=== PATIENT | male | born 1990 | race Caucasian/White ===

== ENCOUNTER 2018-06-11 15:07 | Emergency (ER) | payer MEDICAID ==
--- NOTE | 2018-06-11 15:25 | NUR ---
Pt LWOBS. Pt stating he needs to go to his [facility] appt. Intermittently stating he need a telephone to call his father and then stating that no one iin his family care for him and no one will talk with him. Flight of ideas. Pt denies HI, SI. attempts made to convince pt to stay for HURD. Pt refused to stay and walked out.
== END 2018-06-11 15:26 | disposition left against medical advice (07) ==
LOC: ED 15:20
DX: M79.672 Pain in left foot (principal); Z53.21 Procedure and treatment not carried out due to patient leaving prior to being seen by health care provider

== ENCOUNTER 2018-08-31 22:19 | Emergency (ER) | payer MEDICAID ==
[~2018-08-31] VITALS: Ht 182.9 cm; Wt 66.0 kg
[2018-08-31 22:24] VITALS: BP 115/69
[2018-08-31] MEDS ORDERED: COLCHICINE 0.6 MG TABLET ONE (22:50)
[2018-08-31] MEDS ORDERED: INDOMETHACIN 50 MG CAPSULE ONE (22:50)
[2018-08-31] MEDS ORDERED: COLCHICINE 0.6 MG TABLET PO ONE (23:00)
[2018-08-31] MEDS ORDERED: INDOMETHACIN 50 MG CAPSULE PO ONE (23:00)
[2018-08-31] MEDS ORDERED: HYDROcodone/APAP 5/325 TABLET ONE (23:09)
[2018-08-31] MEDS ORDERED: HYDROcodone/APAP 5/325 TABLET PO ONE (23:30)
== END 2018-08-31 23:18 | disposition home or self-care (01) ==
LOC: ED 22:57
DX: M13.171 Monoarthritis, not elsewhere classified, right ankle and foot (principal); M10.071 Idiopathic gout, right ankle and foot; F17.210 Nicotine dependence, cigarettes, uncomplicated
CPT/HCPCS: 99284

== ENCOUNTER 2019-01-24 06:16 | Emergency (ER) | payer MEDICAID ==
[~2019-01-24] VITALS: Ht 182.9 cm; Wt 76.7 kg
[2019-01-24 06:17] VITALS: BP 119/69
[2019-01-24] MEDS ORDERED: DEXAMETHASONE 4 MG TABLET ONE (06:52)
[2019-01-24] MEDS ORDERED: DEXAMETHASONE 4 MG TABLET PO ONE (07:00)
== END 2019-01-24 07:00 | disposition home or self-care (01) ==
LOC: ED 06:31
DX: J02.0 Streptococcal pharyngitis (principal); F17.200 Nicotine dependence, unspecified, uncomplicated
CPT/HCPCS: 99283

== ENCOUNTER 2019-02-13 10:49 | Emergency (ER) | payer MEDICAID ==
[~2019-02-13] VITALS: Ht 182.9 cm; Wt 73.2 kg
[2019-02-13 11:16] VITALS: BP 142/87
[2019-02-13] MEDS ORDERED: DM/P240L2 PO (11:18)
--- NOTE | 2019-02-13 11:23 | NUR ---
THIS IS A 28 YO M WHO C/O OF HEADACHE, RECENT FEVER AND RIGHT FOOT PAIN. RESPIRATIONS ARE EVEN AND UNLABORED. PATIENT IS IN NO ACUTE DISTRESS. VITALS STABLE. PATIENT RESTING ON GURNEY WATCHING TV WITH CALL LIGHT IN REACH. DENIES FURTHER NEEDS AT THIS TIME.
--- NOTE | 2019-02-13 11:51 | NUR ---
Patient given discharge instructions and they have confirmed that they understand the instructions. Patient ambulatory with steady gait.
== END 2019-02-13 11:53 | disposition home or self-care (01) ==
LOC: ED 11:50
DX: J02.9 Acute pharyngitis, unspecified (principal); M1A.0710 Idiopathic chronic gout, right ankle and foot, without tophus (tophi)
CPT/HCPCS: 99282

== ENCOUNTER 2019-02-23 12:52 | Emergency (ER) ==
[~2019-02-23] VITALS: Ht 185.4 cm; Wt 72.7 kg
[~2019-02-23 12:52] MED LIST: ALBU0.63 NEB; DM/P240L2 PO; INVEGA SUSTENNA; SEROQUEL; WELLBUTRIN
[2019-02-23 13:02] VITALS: BP 103/60
--- NOTE | 2019-02-23 15:13 | NUR ---
pt given dc instructions. pt's foot splinted by edt, pt given fitted crutches and education by edt. .pt verbalizes understanding. pt amb to dc desk with crutch gait. pt a&o, resps even and unlabored, nadn at fl.
== END 2019-02-23 15:00 | disposition home or self-care (01) ==
LOC: ED 14:54
DX: S90.32XA Contusion of left foot, initial encounter (principal); S93.402A Sprain of unspecified ligament of left ankle, initial encounter; J45.909 Unspecified asthma, uncomplicated; M10.9 Gout, unspecified; F17.200 Nicotine dependence, unspecified, uncomplicated; X58.XXXA Exposure to other specified factors, initial encounter; Y93.89 Activity, other specified; Y92.89 Other specified places as the place of occurrence of the external cause; Y99.8 Other external cause status
CPT/HCPCS: 29515; 99283

== ENCOUNTER 2019-02-26 09:01 | Emergency (ER) | payer MEDICAID ==
[~2019-02-26] VITALS: Ht 185.4 cm; Wt 75.0 kg
[2019-02-26 09:13] VITALS: BP 137/96
[2019-02-26] MEDS ORDERED: IBUPROFEN 800 MG TABLET ONE (09:37)
--- NOTE | 2019-02-26 09:47 | NUR ---
Patient/Caregiver given discharge instructions and they have confirmed that they understand the instructions. Patient ambulatory with steady gait.
[2019-02-26] MEDS ORDERED: IBUPROFEN 800 MG TABLET PO ONE (10:00)
== END 2019-02-26 09:48 | disposition home or self-care (01) ==
LOC: ED 09:30
DX: G89.11 Acute pain due to trauma (principal); M79.662 Pain in left lower leg; J45.909 Unspecified asthma, uncomplicated; X58.XXXA Exposure to other specified factors, initial encounter; Y93.89 Activity, other specified; Y92.89 Other specified places as the place of occurrence of the external cause; Y99.8 Other external cause status
CPT/HCPCS: 99282

== ENCOUNTER 2019-03-07 00:01 | Emergency (ER) | payer MEDICAID ==
[~2019-03-07] VITALS: Ht 185.4 cm; Wt 76.1 kg
[2019-03-07 00:04] VITALS: BP 138/82
--- NOTE | 2019-03-07 00:14 | NUR ---
MD AT BEDSIDE TO ASSESS PT
[2019-03-07] MEDS ORDERED: SULFAMETH./TRIMETHOPRIM DS 800MG/160MG TABLET PO ONE (00:30)
[2019-03-07] MEDS ORDERED: ALBUTEROL/IPRATROPIUM 2.5MG/0.5MG, 3 ML NPPB ONE (00:30)
[2019-03-07] MEDS ORDERED: ALBUTEROL/IPRATROPIUM 2.5MG/0.5MG, 3 ML ONE (00:38)
== END 2019-03-07 01:34 | disposition home or self-care (01) ==
LOC: ED 00:25
DX: J20.8 Acute bronchitis due to other specified organisms (principal); B34.9 Viral infection, unspecified; L03.113 Cellulitis of right upper limb; L01.01 Non-bullous impetigo; F10.10 Alcohol abuse, uncomplicated; J45.909 Unspecified asthma, uncomplicated; F17.200 Nicotine dependence, unspecified, uncomplicated; Z72.9 Problem related to lifestyle, unspecified; Z91.14 Patient's other noncompliance with medication regimen; Z75.9 Unspecified problem related to medical facilities and other health care; Z63.8 Other specified problems related to primary support group; Y90.9 Presence of alcohol in blood, level not specified
CPT/HCPCS: 94640; 99283; J7620

== ENCOUNTER 2019-03-15 15:49 | Emergency (ER) | payer MEDICAID ==
[~2019-03-15] VITALS: Ht 188 cm; Wt 79.7 kg
[2019-03-15 15:58] VITALS: BP 133/55
== END 2019-03-15 17:11 | disposition home or self-care (01) ==
LOC: ED 16:45
DX: L01.01 Non-bullous impetigo (principal); J34.0 Abscess, furuncle and carbuncle of nose; L03.114 Cellulitis of left upper limb; L03.113 Cellulitis of right upper limb; J45.909 Unspecified asthma, uncomplicated; M10.9 Gout, unspecified; Z88.8 Allergy status to other drugs, medicaments and biological substances
CPT/HCPCS: 87081; 87147; 87880; 99283

== ENCOUNTER 2019-03-26 09:45 | Emergency (ER) | payer MEDICAID ==
[~2019-03-26] VITALS: Ht 190.5 cm; Wt 74.8 kg
[2019-03-26 09:53] VITALS: BP 128/90
== END 2019-03-26 10:37 | disposition home or self-care (01) ==
LOC: ED 10:30
DX: B35.6 Tinea cruris (principal); F17.200 Nicotine dependence, unspecified, uncomplicated; Z72.9 Problem related to lifestyle, unspecified; Z86.19 Personal history of other infectious and parasitic diseases
CPT/HCPCS: 99282

== ENCOUNTER 2019-03-31 04:56 | Emergency (ER) | payer MEDICAID ==
[~2019-03-31] VITALS: Ht 182.9 cm; Wt 80.0 kg
[2019-03-31 06:57] VITALS: BP 119/74
== END 2019-03-31 06:58 ==
LOC: ED 06:52
DX: J06.9 Acute upper respiratory infection, unspecified (principal); J45.909 Unspecified asthma, uncomplicated; M10.9 Gout, unspecified
CPT/HCPCS: 71046; 87880; 99284

== ENCOUNTER 2019-04-14 00:47 | Emergency (ER) | payer MEDICAID ==
[~2019-04-14] VITALS: Ht 182.9 cm; Wt 76.1 kg
[2019-04-14 00:51] VITALS: BP 102/64
--- NOTE | 2019-04-14 01:23 | NUR ---
Discharge instructions given. All questions and concerns addressed. Patient ambulatory with a steady gait. Belongings with patient.
== END 2019-04-14 01:24 | disposition home or self-care (01) ==
LOC: ED 01:03
DX: M79.672 Pain in left foot (principal); M79.671 Pain in right foot; J45.909 Unspecified asthma, uncomplicated; M10.9 Gout, unspecified; F17.200 Nicotine dependence, unspecified, uncomplicated; Z72.9 Problem related to lifestyle, unspecified; Z75.9 Unspecified problem related to medical facilities and other health care; Z91.14 Patient's other noncompliance with medication regimen; Z63.8 Other specified problems related to primary support group
CPT/HCPCS: 99281

== ENCOUNTER 2019-04-25 07:06 | Emergency (ER) | payer MEDICAID ==
[~2019-04-25] VITALS: Ht 182.9 cm; Wt 74.6 kg
[2019-04-25 07:10] VITALS: BP 134/81
--- NOTE | 2019-04-25 07:29 | NUR ---
PT REQUESTING COUGH MEDICINE. HAS HAD A COUGH FOR 2 WEEKS. FEET ARE BOTHERING HIM BUT HE BELIEVES THAT IS FROM WALKING A LOT
== END 2019-04-25 08:35 | disposition home or self-care (01) ==
LOC: ED 08:32
DX: J45.901 Unspecified asthma with (acute) exacerbation (principal); J02.8 Acute pharyngitis due to other specified organisms; B34.9 Viral infection, unspecified
CPT/HCPCS: 71046; 87081; 87880; 99284

== ENCOUNTER 2019-05-05 12:57 | Emergency (ER) | payer MEDICAID ==
[~2019-05-05] VITALS: Ht 190.5 cm; Wt 75.8 kg
[2019-05-05 13:00] VITALS: BP 142/55
[2019-05-05] MEDS ORDERED: NEOSPORIN OINT. PKT 1 PACKET ONE (13:18)
--- NOTE | 2019-05-05 13:18 | NUR ---
PT HERE FOR INJURY TO RIGHT THUMB. STATES HE GOT IT WHILE SKIPPING ROCKS YESTERDAY. SMALL WOUND NOTED JUST ABOVE THUMB NAIL. NO ACTIVE BLEEDING. PT RESTING ON MARILYN. URI.
--- NOTE | 2019-05-05 13:23 | NUR ---
FUNERAL SERVICE LICENSEE AT BEDSIDE DRESSING WOUND NOW.
== END 2019-05-05 13:53 | disposition home or self-care (01) ==
LOC: ED 13:44
DX: S60.311A Abrasion of right thumb, initial encounter (principal); L03.011 Cellulitis of right finger; J45.909 Unspecified asthma, uncomplicated; Z59.0 Homelessness; X58.XXXA Exposure to other specified factors, initial encounter; Y93.89 Activity, other specified; Y92.89 Other specified places as the place of occurrence of the external cause; Y99.8 Other external cause status
CPT/HCPCS: 99283

== ENCOUNTER 2019-06-02 04:30 | Emergency (ER) | payer MEDICAID ==
[~2019-06-02] VITALS: Ht 185.4 cm; Wt 70.9 kg
[2019-06-02 04:34] VITALS: BP 130/81
== END 2019-06-02 07:22 | disposition left against medical advice (07) ==
LOC: ED 07:11
DX: R10.9 Unspecified abdominal pain (principal); Z53.21 Procedure and treatment not carried out due to patient leaving prior to being seen by health care provider

== ENCOUNTER 2019-06-12 13:56 | Emergency (ER) | payer MEDICAID ==
[~2019-06-12] VITALS: Ht 182.9 cm; Wt 70.0 kg
--- NOTE | 2019-06-12 14:05 | NUR ---
pt refusing vitals.
--- NOTE | 2019-06-12 14:13 | NUR ---
PT BIBA FROM [facility] (NOT IN CUSTODY) FOR OPEN FINGER WOUNDS. PT STATES HE DOES NOT KNOW HOW HE ACQUIRED THE WOUNDS. PT REFUSING MONITORING EQUIPMENT AND VS. PT IS MANIC AND SPEAKS CONTINUOUSLY, BUT IS CALM. DR. HAYES TO BS TO ASSES WOUNDS. HANDS WASHED AND ARE CURRENTLY SOAKING IN WARM SOAPY WATER. WILL CONTINUE TO MONITOR.
--- NOTE | 2019-06-12 15:09 | NUR ---
Patient given discharge instructions and they have confirmed that they understand the instructions. Patient ambulatory with steady gait.
== END 2019-06-12 15:10 | disposition home or self-care (01) ==
LOC: ED 14:50
DX: S60.410A Abrasion of right index finger, initial encounter (principal); S60.412A Abrasion of right middle finger, initial encounter; S60.414A Abrasion of right ring finger, initial encounter; S60.416A Abrasion of right little finger, initial encounter; S90.511A Abrasion, right ankle, initial encounter; S60.411A Abrasion of left index finger, initial encounter; S60.413A Abrasion of left middle finger, initial encounter; S60.415A Abrasion of left ring finger, initial encounter; S60.417A Abrasion of left little finger, initial encounter; F17.200 Nicotine dependence, unspecified, uncomplicated; X58.XXXA Exposure to other specified factors, initial encounter; Y93.9 Activity, unspecified; Y92.89 Other specified places as the place of occurrence of the external cause; Y99.8 Other external cause status
CPT/HCPCS: 99283

== ENCOUNTER 2019-08-10 07:01 | Emergency (ER) | payer MEDICAID ==
[~2019-08-10] VITALS: Ht 175.3 cm; Wt 80.0 kg
[2019-08-10 07:07] VITALS: BP 124/81
== END 2019-08-10 07:31 | disposition home or self-care (01) ==
LOC: ED 07:20
DX: L03.115 Cellulitis of right lower limb (principal); L01.01 Non-bullous impetigo; J45.909 Unspecified asthma, uncomplicated; M10.9 Gout, unspecified
CPT/HCPCS: 99283

== ENCOUNTER 2019-08-24 13:08 | Emergency (ER) | payer MEDICAID ==
[~2019-08-24] VITALS: Ht 188 cm; Wt 71.5 kg
--- NOTE | 2019-08-24 13:18 | NUR ---
THIS IS A 29 YO M BIB EMS AFTER BEING FOUND LAYING ON GROUND OUTSIDE OF [facility]. PER EMS PT REPORTS DRINKING 1 PINT TODAY. PT ARROUSES TO VERBAL STIMULI. GCS OF 9. RESP EVEN AND UNLABORED, VSS. PT DESAT TO 80% WHEN SLEEPING WHILE THIS RN WAS IN THE ROOM. 98% AFTER AROUSED. PT PLACED ON 4L NC FOR SAFETY. PT RESTING ON [place] W/ CALL LIGHT IN REACH, SIDE RAILS UPX2, CONNECTED TO MONITORING. AWAITING ED EVAL.
--- NOTE | 2019-08-24 14:12 | NUR ---
PT SLEEPING ON GURNEY, CHEST RISE AND FALL OBSERVED, VSS, NADN.
--- NOTE | 2019-08-24 15:44 | NUR ---
PT SLEEPING ON GURNEY, CHEST RISE AND FALL OBSERVED, VSS, NADN.
--- NOTE | 2019-08-24 15:52 | NUR ---
PT MORE AROUSABLE. SITTING UP OPN GURNEY EATING. VSS, ZITAN.
[2019-08-24 16:15] VITALS: BP 105/70
== END 2019-08-24 16:32 | disposition home or self-care (01) ==
LOC: ED 15:20
DX: F10.120 Alcohol abuse with intoxication, uncomplicated (principal); J45.909 Unspecified asthma, uncomplicated; M10.9 Gout, unspecified; Y90.0 Blood alcohol level of less than 20 mg/100 ml
CPT/HCPCS: 99283

== ENCOUNTER 2019-08-26 08:47 | Emergency (ER) | payer MEDICAID ==
[~2019-08-26] VITALS: Ht 182.9 cm; Wt 74.1 kg
[2019-08-26 08:50] VITALS: BP 135/75
--- NOTE | 2019-08-26 09:12 | NUR ---
PT CAUGHT MASTERBATING X2 IN RM, VERBALIZED TO PT THAT IS NOT OK TO DO HERE. PT STATES "IM SORRY ILL JUST GO, IM OK" ERPROVIDER UPDATED
== END 2019-08-26 09:15 | disposition left against medical advice (07) ==
LOC: ED 09:04
DX: M54.9 Dorsalgia, unspecified (principal); M79.606 Pain in leg, unspecified; Z53.21 Procedure and treatment not carried out due to patient leaving prior to being seen by health care provider

== ENCOUNTER 2019-10-28 05:09 | Emergency (ER) | payer MEDICAID ==
[~2019-10-28] VITALS: Ht 182.9 cm; Wt 74.2 kg
[2019-10-28 05:11] VITALS: BP 133/72
--- NOTE | 2019-10-28 05:33 | NUR ---
PT STATES HE WAS RELEASED FROM [facility]USTODIAL LAST NIGHT. DURING PT INTERVIEW, PT ASKS MD FOR PERCOCET, NORCOS, TYLENOL, ADVIL PM, BUS PASS AND FOOD. PT HAS DISORGANIZED THOUGHT PROCESS
--- NOTE | 2019-10-28 05:36 | NUR ---
PATIENT STATED THAT HE WANTS TO LEAVE, PATIENT REFUSED TO SIGN OUT AMA. AMBULATORY TO DISCHARGE DESK WITHOUT COMPLICATIONS.
== END 2019-10-28 05:39 | disposition left against medical advice (07) ==
LOC: ED 05:30
DX: S90.812A Abrasion, left foot, initial encounter (principal); F41.1 Generalized anxiety disorder; M10.9 Gout, unspecified; R00.0 Tachycardia, unspecified; I51.7 Cardiomegaly; X58.XXXA Exposure to other specified factors, initial encounter; Y93.89 Activity, other specified; Y92.89 Other specified places as the place of occurrence of the external cause; Y99.8 Other external cause status
CPT/HCPCS: 93005; 99283

== ENCOUNTER 2019-10-31 21:40 | Emergency (ER) | payer MEDICAID ==
[~2019-10-31] VITALS: Ht 193 cm; Wt 62.0 kg
[2019-10-31 21:42] VITALS: BP 108/58
--- NOTE | 2019-10-31 21:51 | NUR ---
THIS PT WAS BIB [facility] AFTER [employer] CALLED. PER DARIANA [employer] CALLED BECAUSE THIS PT WAS "RUNNING AROUND IN THE PARK AND NOT ACTING RIGHT." PT HAS A HX OF SCHITZOPHRENIA. PT STATES HE'S CURRENTLY HEARING VOICES AND SEEING SHADOWS THAT HE KNOWS AREN'T THERE. THIS PT ALSO HAS FLIGHT OF IDEAS. HE IS A&OX4, CALM AND COOPERATIVE. DENIES SI/ HI.
--- NOTE | 2019-10-31 21:53 | NUR ---
PT LAYING IN BED, NO SIGNS OF DISTRESS, BED RAIL UP, CALL LIGHT IN REACH.
[2019-10-31] MEDS ORDERED: NEOSPORIN OINT. PKT 1 PACKET ONE (22:10)
--- NOTE | 2019-10-31 22:21 | NUR ---
PT GIVEN BUCKET AND SOAP TO WASH FOOT.
== END 2019-10-31 23:10 | disposition home or self-care (01) ==
LOC: ED 21:57
DX: S91.202A Unspecified open wound of left great toe with damage to nail, initial encounter (principal); M79.671 Pain in right foot; F10.10 Alcohol abuse, uncomplicated; Z72.9 Problem related to lifestyle, unspecified; J45.909 Unspecified asthma, uncomplicated; M10.9 Gout, unspecified; X58.XXXA Exposure to other specified factors, initial encounter; Y93.89 Activity, other specified; Y92.410 Unspecified street and highway as the place of occurrence of the external cause; Y99.8 Other external cause status; Y90.9 Presence of alcohol in blood, level not specified
CPT/HCPCS: 99283

== ENCOUNTER 2019-11-03 21:12 | Emergency (ER) | payer MEDICAID ==
[~2019-11-03] VITALS: Ht 182.9 cm; Wt 75.8 kg
[2019-11-03 21:17] VITALS: BP 125/71
--- NOTE | 2019-11-03 22:11 | NUR ---
Attempted to call pt back. NILx1.
--- NOTE | 2019-11-03 22:28 | NUR ---
Attempted to call pt back. NILx2.
--- NOTE | 2019-11-03 22:41 | NUR ---
Attempted to call pt back. NILx3. Considered LWBS at this time.
== END 2019-11-03 22:43 | disposition left against medical advice (07) ==
LOC: ED 22:10
DX: M79.674 Pain in right toe(s) (principal); Z53.21 Procedure and treatment not carried out due to patient leaving prior to being seen by health care provider

== ENCOUNTER 2019-11-10 18:32 | Emergency (ER) | payer MEDICAID ==
[~2019-11-10] VITALS: Ht 188 cm; Wt 73.7 kg
--- NOTE | 2019-11-10 19:10 | NUR ---
RETIREMENT PLAN COUNSELOR: PT AMBULATORY TO ROOM WITH STEADY GAIT AT THIS TIME
--- NOTE | 2019-11-10 20:18 | NUR ---
PT OK FOR D/C. PT GIVEN BUS PASS PER REQUEST. PT VERBALIZED UNDERSTANDING OF D/C INSTRUCTIONS.
[2019-11-10 20:24] VITALS: BP 129/78
== END 2019-11-10 20:26 | disposition home or self-care (01) ==
LOC: ED 20:02
DX: M79.671 Pain in right foot (principal); M79.672 Pain in left foot; J45.909 Unspecified asthma, uncomplicated; M10.9 Gout, unspecified
CPT/HCPCS: 99281

== ENCOUNTER 2020-01-13 02:48 | Emergency (ER) | payer MEDICAID ==
[~2020-01-13] VITALS: Ht 182.9 cm; Wt 79.9 kg
--- NOTE | 2020-01-13 03:07 | NUR ---
PT STATES HAVING A GOUT FLAIR UP FOR 2 DAYS, AND IS HAVING TROUBLE WALKING AROUND ON IT. STATES 10/10 PAIN. PT RESTING IN BED, AND FRIEND HERE FOR SUPPORT.
--- NOTE | 2020-01-13 03:30 | NUR ---
PT'S FOOT ELEVATED AND PROVIDED ICE PER ERP ORDER.
[2020-01-13] MEDS ORDERED: NAPROXEN 500 MG TABLET PO ONE (04:00)
[2020-01-13] MEDS ORDERED: NAPROXEN 500 MG TABLET ONE (04:11)
[2020-01-13] MEDS ORDERED: COLCHICINE 0.6 MG CAPSULE PO ONE (04:30)
[2020-01-13] MEDS ORDERED: COLCHICINE 0.6 MG CAPSULE ONE (05:20)
[2020-01-13 05:24] VITALS: BP 110/63
== END 2020-01-13 05:32 | disposition home or self-care (01) ==
LOC: ED 04:16
DX: M10.071 Idiopathic gout, right ankle and foot (principal); M13.171 Monoarthritis, not elsewhere classified, right ankle and foot; J45.909 Unspecified asthma, uncomplicated; Z72.9 Problem related to lifestyle, unspecified
CPT/HCPCS: 99283

== ENCOUNTER 2020-03-18 16:14 | Emergency (ER) | payer MEDICAID ==
[~2020-03-18] VITALS: Ht 177.8 cm; Wt 71.0 kg
[2020-03-18 16:23] VITALS: BP 127/75
== END 2020-03-18 16:43 | disposition home or self-care (01) ==
LOC: ED 16:20
DX: L89.91 Pressure ulcer of unspecified site, stage 1 (principal); M79.672 Pain in left foot; F17.210 Nicotine dependence, cigarettes, uncomplicated; Z72.9 Problem related to lifestyle, unspecified
CPT/HCPCS: 99283

== ENCOUNTER 2020-03-31 17:56 | Emergency (ER) | payer MEDICAID ==
[~2020-03-31] VITALS: Ht 182.9 cm; Wt 72.0 kg
[2020-03-31 17:58] VITALS: BP 122/72
--- NOTE | 2020-03-31 18:20 | NUR ---
NO ANSWER FROM TRIAGE TO RM
--- NOTE | 2020-03-31 18:21 | NUR ---
JENIFEROPEJanice CALLED X 3
== END 2020-03-31 18:24 | disposition home or self-care (01) ==
LOC: ED 18:07
DX: M79.605 Pain in left leg (principal); Z53.21 Procedure and treatment not carried out due to patient leaving prior to being seen by health care provider

== ENCOUNTER 2020-04-09 15:49 | Emergency (ER) | payer MEDICAID ==
[~2020-04-09] VITALS: Ht 182.9 cm; Wt 74.1 kg
--- NOTE | 2020-04-09 15:57 | NUR ---
KATI RN: PT IN BATHROOM
[2020-04-09 16:05] VITALS: BP 121/66
[2020-04-09] MEDS ORDERED: SULFAMETH./TRIMETHOPRIM DS 800MG/160MG TABLET PO ONE (16:30)
[2020-04-09] MEDS ORDERED: SULFAMETH./TRIMETHOPRIM DS 800MG/160MG TABLET ONE (16:47)
== END 2020-04-09 17:03 | disposition home or self-care (01) ==
LOC: ED 16:28
DX: L02.416 Cutaneous abscess of left lower limb (principal); F17.200 Nicotine dependence, unspecified, uncomplicated
CPT/HCPCS: 99283

== ENCOUNTER 2020-05-26 21:53 | Emergency (ER) | payer MEDICAID ==
[~2020-05-26] VITALS: Ht 182.9 cm; Wt 67.6 kg
[2020-05-26 22:07] VITALS: BP 139/79
--- NOTE | 2020-05-26 22:46 | NUR ---
[place], no distress. wound to outer portion of right ankle dressed with a 2x2 and some tape. no bleeding or drainage. f/u and d/c instructions given to pt and he v/u.
--- NOTE | 2020-05-26 22:55 | NUR ---
Provided pt snack, drink, cleaned feet with warm water and antimicrobial soap. Socks placed after curad and non-stick dressing applied to sores on feet.
== END 2020-05-26 22:48 | disposition home or self-care (01) ==
LOC: ED 22:00
DX: S90.822A Blister (nonthermal), left foot, initial encounter (principal); S90.821A Blister (nonthermal), right foot, initial encounter; L02.416 Cutaneous abscess of left lower limb; X58.XXXA Exposure to other specified factors, initial encounter; Y93.89 Activity, other specified; Y92.89 Other specified places as the place of occurrence of the external cause; Y99.8 Other external cause status
CPT/HCPCS: 99283

== ENCOUNTER 2020-05-28 01:28 | Emergency (ER) | payer MEDICAID ==
[~2020-05-28] VITALS: Ht 182.9 cm; Wt 72.8 kg
[2020-05-28 01:42] VITALS: BP 146/84
[2020-05-28] MEDS ORDERED: IBUPROFEN 800 MG TABLET PO ONE (02:00)
== END 2020-05-28 02:40 | disposition home or self-care (01) ==
LOC: ED 02:34
DX: G89.11 Acute pain due to trauma (principal); M79.675 Pain in left toe(s); F17.200 Nicotine dependence, unspecified, uncomplicated; J45.909 Unspecified asthma, uncomplicated; M10.9 Gout, unspecified; Z72.9 Problem related to lifestyle, unspecified
CPT/HCPCS: 99281

== ENCOUNTER 2020-06-21 16:36 | Emergency (ER) | payer MEDICAID ==
[~2020-06-21] VITALS: Ht 182.9 cm; Wt 73.4 kg
[2020-06-21 16:55] VITALS: BP 122/89
--- NOTE | 2020-06-21 17:24 | NUR ---
PT HAS CO ANXIETY. NOT COMPLIANT W PSYCH MEDS. STAYING AT LONG TERM. DENIES SI
--- NOTE | 2020-06-21 18:24 | NUR ---
Patient given discharge instructions and they have confirmed that they understand the instructions. Patient ambulatory with steady gait. Bus pass given
== END 2020-06-21 18:26 | disposition home or self-care (01) ==
LOC: ED 17:32
DX: F41.9 Anxiety disorder, unspecified (principal); R42 Dizziness and giddiness; R07.89 Other chest pain; R51.9 Headache, unspecified; R11.10 Vomiting, unspecified
CPT/HCPCS: 93005; 99283

== ENCOUNTER 2020-06-21 21:24 | Emergency (ER) | payer MEDICAID ==
[~2020-06-21] VITALS: Ht 182.9 cm; Wt 71.2 kg
[2020-06-22] VITALS: BP 119/87
--- NOTE | 2020-06-22 00:01 | NUR ---
PATIENT GIVEN PANTS, SHIRT, JACKET, SOCKS. PATIENT CLEARED FOR DISCHARGE. PT STATED THAT HE PREFERED A BUS PASS OVER TAXI VOUCHER, GIVEN PER PATIENT REQUEST. PATIENT DENIES ANY ADDITIONAL QUESTIONS AT TIME OF DISCHARGE. AMBULATORY TO DISCHARGE WITHOUT COMPLICATIONS, WITH BELONGINGS.
== END 2020-06-22 00:02 | disposition home or self-care (01) ==
LOC: ED 06-22
DX: M79.671 Pain in right foot (principal); M79.672 Pain in left foot; X31.XXXA Exposure to excessive natural cold, initial encounter; Y93.89 Activity, other specified; Y92.89 Other specified places as the place of occurrence of the external cause; Y99.8 Other external cause status
CPT/HCPCS: 99281

== ENCOUNTER 2020-06-25 14:49 | Emergency (ER) | payer MEDICAID ==
[~2020-06-25] VITALS: Ht 182.9 cm; Wt 70.4 kg
--- NOTE | 2020-06-25 15:17 | NUR ---
PT W/ C/O BILAT FOOT PAIN "TRENCH FOOT FROM WALKING ALL WEEKEND" PT ASLEEP WHEN ENTERING ROOM, PT UNABLE GIVE STRAIGHT ANSWER WHEN ASKING QUESTIONS. PT MUMBLES TO SELF AND TRAILS OFF TOPIC. GABRIEL PHOENIX AT BEDSIDE FOR EVALUATION. NADN. OLIVIER.
--- NOTE | 2020-06-25 15:34 | NUR ---
PT DENIES FOOT TRUAMA, NO VISIBLE TRAUAMA, OR WOUND. FEET DO APPEAR RED AND DIRTY.
[2020-06-25 16:34] VITALS: BP 108/61
--- NOTE | 2020-06-25 16:36 | NUR ---
Patient/Caregiver given discharge instructions and they have confirmed that they understand the instructions. Patient ambulatory with steady gait.
== END 2020-06-25 16:36 | disposition home or self-care (01) ==
LOC: ED 16:00
DX: L03.116 Cellulitis of left lower limb (principal); J45.909 Unspecified asthma, uncomplicated
CPT/HCPCS: 99283

== ENCOUNTER 2020-07-16 19:41 | Emergency (ER) | payer MEDICAID ==
[~2020-07-16] VITALS: Ht 182.9 cm; Wt 74.1 kg
--- NOTE | 2020-07-16 20:07 | NUR ---
patient arrives with injury to left big toe. its a busted heat blister, its red and painful to patient
--- NOTE | 2020-07-16 20:11 | NUR ---
patient mostly requesting snack and bus pass. will get snack
[2020-07-16] MEDS ORDERED: KETOROLAC 30 MG/1 ML ONE (20:26)
[2020-07-16] MEDS ORDERED: KETOROLAC 30 MG/1 ML IM ONE (20:30)
[2020-07-16 20:47] VITALS: BP 128/78
--- NOTE | 2020-07-16 20:49 | NUR ---
got patient peanut butter & jelly sandwich, bus pas, and drink
--- NOTE | 2020-07-16 20:51 | NUR ---
dressed wound with abx cream, allevyn, and gauze/tape
[2020-07-16] MEDS ORDERED: NEOSPORIN OINT. PKT 1 PACKET ONE ×2 (20:52→20:54)
== END 2020-07-16 21:00 | disposition home or self-care (01) ==
LOC: ED 20:13
DX: M79.672 Pain in left foot (principal); L03.032 Cellulitis of left toe; L89.892 Pressure ulcer of other site, stage 2; F10.10 Alcohol abuse, uncomplicated; F17.210 Nicotine dependence, cigarettes, uncomplicated; F12.10 Cannabis abuse, uncomplicated; Y90.0 Blood alcohol level of less than 20 mg/100 ml
CPT/HCPCS: 73660; 96372; 99283; J1885

== ENCOUNTER 2020-07-19 06:38 | Emergency (ER) | payer MEDICAID ==
[~2020-07-19] VITALS: Ht 182.9 cm; Wt 73.9 kg
[2020-07-19 06:40] VITALS: BP 149/88
--- NOTE | 2020-07-19 06:50 | NUR ---
PA AT BS
--- NOTE | 2020-07-19 07:07 | NUR ---
PT SHOWERED W/ SOAP AND WATER. PT CHANGED INTO GOWN. NO NEEDS AT THIS TIME
[2020-07-19] MEDS ORDERED: NEOSPORIN OINT. PKT 1 PACKET ONE (07:20)
--- NOTE | 2020-07-19 07:36 | NUR ---
Patient given discharge instructions and they have confirmed that they understand the instructions. Patient ambulatory with steady gait.
== END 2020-07-19 07:38 | disposition home or self-care (01) ==
LOC: ED 07:30
DX: S91.202A Unspecified open wound of left great toe with damage to nail, initial encounter (principal); X58.XXXA Exposure to other specified factors, initial encounter; Y93.89 Activity, other specified; Y92.89 Other specified places as the place of occurrence of the external cause; Y99.8 Other external cause status
CPT/HCPCS: 99282

== ENCOUNTER 2020-07-25 18:53 | Emergency (ER) | payer MEDICAID ==
[~2020-07-25] VITALS: Ht 182.9 cm; Wt 85.0 kg
--- NOTE | 2020-07-25 18:55 | NUR ---
pt bib ems from where he was sleeping on someones lawn with a 5th of vodka. pt was found by an offf optics technical officer who called ems. pt provided 750mls NS enroute. NAD, pt will mumble back to rn when asked questions but does not speak clearly enough to state name. pt mumbled birthday to rn but rn was unable to tell exactly what was said. pt smells of etoh. placed on rclovis, spo2/bp monitoring in place, bed in lowest, rails engaged, call light on lap, vss, wctm.
--- NOTE | 2020-07-25 20:29 | NUR ---
pt resting on gurney, nad, arousable to verbal stimuli. pt resting with eyes closed. even and unlabored respirations noted, vss, monitoring in placed, bed in lowest, rails engaged, call light on lap, wctm.
--- NOTE | 2020-07-25 21:48 | NUR ---
PT RESTING ON GURNEY, NAD, APPEARS COMFORTABLE, VSS, MORE EASILY ROUSED AT THIS TIME. UNABLE TO WALK AT THIS TIME. WCTM
--- NOTE | 2020-07-25 22:45 | NUR ---
PT RESTING ON [place], NAD, NO CHANGE IN CONDITION, VSS, WCTM. MTF
--- NOTE | 2020-07-25 23:22 | NUR ---
Patient given discharge instructions and they have confirmed that they understand the instructions. Patient ambulatory with steady gait. RN LOOKED FOR SHOES FOR PT. NO SHOES IN CLOSET WERE CORRECT SIZE. PT PROVIDED BLANKET AND BUS PASS PER REQUEST, PT DECLINE TAXI VOUCHER AND REQUESTED BUS PASS. PT NAD, DENIES ADDITIONAL QUESTIONS OR NEEDS.
[2020-07-25 23:42] VITALS: BP 118/56
--- NOTE | 2020-07-25 23:42 | NUR ---
PT PROVIDED SNACKS FOR DC.
== END 2020-07-25 23:44 | disposition home or self-care (01) ==
LOC: ED 19:23 → MERGE 19:23 → ED 23:44
DX: F10.120 Alcohol abuse with intoxication, uncomplicated (principal); Y90.0 Blood alcohol level of less than 20 mg/100 ml
CPT/HCPCS: 99285

== ENCOUNTER 2020-07-26 15:30 | Emergency (ER) | payer MEDICAID ==
[~2020-07-26] VITALS: Ht 182.9 cm; Wt 73.3 kg
--- NOTE | 2020-07-26 15:34 | NUR ---
NA IN LOBBY X1
--- NOTE | 2020-07-26 15:40 | NUR ---
NA IN LOBBY X2
[2020-07-26 15:45] VITALS: BP 112/75
--- NOTE | 2020-07-26 15:58 | NUR ---
Task RN: Pt given soapy water bucket to wash feet.
--- NOTE | 2020-07-26 16:46 | NUR ---
Patient/Caregiver given discharge instructions and they have confirmed that they understand the instructions. Patient ambulatory with steady gait.
== END 2020-07-26 16:47 | disposition home or self-care (01) ==
LOC: ED 15:35
DX: B35.3 Tinea pedis (principal); Z72.9 Problem related to lifestyle, unspecified; J45.909 Unspecified asthma, uncomplicated; M10.9 Gout, unspecified; F17.210 Nicotine dependence, cigarettes, uncomplicated
CPT/HCPCS: 99283

== ENCOUNTER 2020-07-27 20:58 | Emergency (ER) | payer MEDICAID ==
[~2020-07-27] VITALS: Ht 182.9 cm; Wt 71.6 kg
[2020-07-27 21:01] VITALS: BP 129/81
--- NOTE | 2020-07-27 21:27 | NUR ---
BUTTON AND BUCKLE MAKER: PT. DE GUZMAN FOR TOE PAIN. SENT TO [facility] UPON ARRIVAL. PT. WAS SEEN YESTERDAY AND PROVIDED WITH NEW SHOES FROM [employer]ET AND SOCKS. PT. STATES WHEN ASKED WHAT HAPPENED TO THE SHOES HE WAS GIVEN YESTERDAY "I THREW THEM AWAY". PT. ALSO MADE A STATEMENT "I WAS IN [place] AND I JUST NEEDED A RIDE DOWNTOWN." PT. WENT TO REGISTRATION DEST AT THIS TIME AND STATED "I AM DISCHARGING MYSELF" PT. AMBULATED OUT OF ED WITH STEADY GAIT.
== END 2020-07-27 21:30 | disposition left against medical advice (07) ==
LOC: ED 21:00
DX: S99.922A Unspecified injury of left foot, initial encounter (principal); Z53.21 Procedure and treatment not carried out due to patient leaving prior to being seen by health care provider; X58.XXXA Exposure to other specified factors, initial encounter; Y93.89 Activity, other specified; Y92.89 Other specified places as the place of occurrence of the external cause; Y99.8 Other external cause status

== ENCOUNTER 2020-07-30 13:52 | Emergency (ER) | payer MEDICAID ==
[2020-07-30 13:59] VITALS: BP 132/65
== END 2020-07-30 14:43 | disposition home or self-care (01) ==
LOC: ED 14:38
DX: Z00.00 Encounter for general adult medical examination without abnormal findings (principal); J45.909 Unspecified asthma, uncomplicated
CPT/HCPCS: 99281

== ENCOUNTER 2020-08-03 00:57 | Emergency (ER) | payer MEDICAID ==
[~2020-08-03] VITALS: Ht 182.9 cm; Wt 92.9 kg
[2020-08-03 01:06] VITALS: BP 117/75
[2020-08-03] MEDS ORDERED: NEOSPORIN OINT. PKT 1 PACKET ONE (02:21)
== END 2020-08-03 02:54 ==
LOC: ED 02:10
DX: S90.511A Abrasion, right ankle, initial encounter (principal); J45.909 Unspecified asthma, uncomplicated; X58.XXXA Exposure to other specified factors, initial encounter; Y93.01 Activity, walking, marching and hiking; Y92.89 Other specified places as the place of occurrence of the external cause; Y99.8 Other external cause status
CPT/HCPCS: 99283

== ENCOUNTER 2020-09-20 00:23 | Emergency (ER) | payer MEDICAID ==
[~2020-09-20] VITALS: Ht 182.9 cm; Wt 75.0 kg
[2020-09-20 00:38] VITALS: BP 138/74
--- NOTE | 2020-09-20 00:58 | NUR ---
PER PSA AT DOOR PT LEFT WITHOUT BEING SEEN BY PROVIDER AT THIS TIME.
== END 2020-09-20 01:29 | disposition left against medical advice (07) ==
LOC: ED 01:00
DX: B86 Scabies (principal); Z53.21 Procedure and treatment not carried out due to patient leaving prior to being seen by health care provider

== ENCOUNTER 2020-09-21 21:34 | Emergency (ER) | payer MEDICAID ==
[~2020-09-21] VITALS: Ht 182.9 cm; Wt 81.0 kg
[2020-09-21 22:09] VITALS: BP 133/77
== END 2020-09-21 22:37 | disposition home or self-care (01) ==
LOC: ED 22:00
DX: L50.9 Urticaria, unspecified (principal); F17.210 Nicotine dependence, cigarettes, uncomplicated; M10.9 Gout, unspecified
CPT/HCPCS: 99283; 99406

== ENCOUNTER 2020-10-11 00:37 | Emergency (ER) | payer MEDICAID ==
[~2020-10-11] VITALS: Ht 185.4 cm; Wt 72.0 kg
--- NOTE | 2020-10-11 00:47 | NUR ---
NIL X 1
--- NOTE | 2020-10-11 01:11 | NUR ---
PT CAME INTO ED WITH A FIELD TRAFFIC INVESTIGATOR "BLISTER ON MY RIGHT BIG TOE" STATES IT POPPED UP TODAY AND HE HAS BEEN WALKING A LOT LATELY. PT NAD, RESTING ON RNAPLES, WALKED BACK TO ROOM WITH A SMOOTH AND STEADY GAIT, MONITORING IN PLACE, REPORT TO PRIMARY RN, ROSA.
[2020-10-11 01:32] VITALS: BP 127/50
--- NOTE | 2020-10-11 01:33 | NUR ---
Patient given discharge instructions and they have confirmed that they understand the instructions. Patient ambulatory with steady gait. NAD, all questions answered appropriately, denies additional needs at this time. No personal belongings left in room after discharge.
== END 2020-10-11 01:35 | disposition home or self-care (01) ==
LOC: ED 01:00
DX: L03.032 Cellulitis of left toe (principal); J45.909 Unspecified asthma, uncomplicated
CPT/HCPCS: 99283

== ENCOUNTER 2020-10-15 01:52 | Emergency (ER) | payer MEDICAID ==
[~2020-10-15] VITALS: Ht 182.9 cm; Wt 74.3 kg
[2020-10-15 02:02] VITALS: BP 124/64
--- NOTE | 2020-10-15 02:08 | NUR ---
PT PRESENTS TO ER FOR LEFT ANKLE PAIN, PT STATES HE WOKE UP IN THE MIDDLE OF THE NIGHT AND IT WAS JUST HURTING, PT HAS A BRACE IN PLACE THAT WAS PLACED AT [facility] THIS MORNING, PT AMBULATED TO THE ROOM, IN ROOM TO DISCUSS POC
[2020-10-15] MEDS ORDERED: IBUPROFEN 600 MG TABLET ONE (02:15)
[2020-10-15] MEDS ORDERED: IBUPROFEN 600 MG TABLET PO ONE (02:30)
== END 2020-10-15 02:26 | disposition home or self-care (01) ==
LOC: ED 02:24
DX: M25.572 Pain in left ankle and joints of left foot (principal); J45.909 Unspecified asthma, uncomplicated
CPT/HCPCS: 99282

== ENCOUNTER 2020-10-17 02:06 | Emergency (ER) | payer MEDICAID ==
[~2020-10-17] VITALS: Ht 182.9 cm; Wt 71.0 kg
[2020-10-17 02:07] VITALS: BP 146/75
== END 2020-10-17 02:34 | disposition home or self-care (01) ==
LOC: ED 02:20
DX: M79.672 Pain in left foot (principal); J45.909 Unspecified asthma, uncomplicated
CPT/HCPCS: 99281

== ENCOUNTER 2020-10-24 02:23 | Emergency (ER) | payer MEDICAID ==
[~2020-10-24] VITALS: Ht 182.9 cm; Wt 72.0 kg
[2020-10-24 06:25] VITALS: BP 106/55
== END 2020-10-24 06:32 | disposition home or self-care (01) ==
LOC: ED 05:37
DX: S90.112A Contusion of left great toe without damage to nail, initial encounter (principal); X58.XXXA Exposure to other specified factors, initial encounter; Y93.89 Activity, other specified; Y92.89 Other specified places as the place of occurrence of the external cause; Y99.8 Other external cause status
CPT/HCPCS: 99283

== ENCOUNTER 2020-11-03 18:04 | Emergency (ER) | payer MEDICAID ==
--- NOTE | 2020-11-03 18:33 | NUR ---
NIL X1.
--- NOTE | 2020-11-03 18:44 | NUR ---
NIL X2.
--- NOTE | 2020-11-03 19:12 | NUR ---
NOT IN LOBBY WHEN CALLED
== END 2020-11-03 19:13 | disposition left against medical advice (07) ==
LOC: ED 19:10
DX: M79.676 Pain in unspecified toe(s) (principal); Z53.21 Procedure and treatment not carried out due to patient leaving prior to being seen by health care provider

== ENCOUNTER 2020-11-15 04:24 | Emergency (ER) | payer MEDICAID ==
[~2020-11-15] VITALS: Ht 182.9 cm; Wt 69.0 kg
[2020-11-15 04:26] VITALS: BP 142/91
--- NOTE | 2020-11-15 04:58 | NUR ---
PATIENT REPORTS HE CAN'T STAY ANY LONGER BECAUSE HE NEEDS TO GET ON THE BUS TO GO TO WORK.
== END 2020-11-15 05:00 | disposition left against medical advice (07) ==
LOC: ED 04:45
DX: M25.871 Other specified joint disorders, right ankle and foot (principal); Z53.21 Procedure and treatment not carried out due to patient leaving prior to being seen by health care provider

== ENCOUNTER 2020-11-19 17:14 | Emergency (ER) | payer MEDICAID ==
[~2020-11-19] VITALS: Ht 182.9 cm; Wt 72.8 kg
[2020-11-19 17:29] VITALS: BP 110/56
--- NOTE | 2020-11-19 18:46 | NUR ---
insurance account assistant: attempted to call pt from lobby, no answer
[2020-11-19] MEDS ORDERED: CYCLOBENZAPRINE 10 MG TABLET PO ONE (20:00)
[2020-11-19] MEDS ORDERED: KETOROLAC 30 MG/1 ML IM ONE (20:00)
--- NOTE | 2020-11-19 20:30 | NUR ---
NA X 2
--- NOTE | 2020-11-19 21:00 | NUR ---
NA X 3
== END 2020-11-19 21:03 | disposition left against medical advice (07) ==
LOC: ED 18:00
DX: M54.2 Cervicalgia (principal)
CPT/HCPCS: 99281

== ENCOUNTER 2020-11-22 05:15 | Emergency (ER) | payer MEDICAID ==
[~2020-11-22] VITALS: Ht 182.9 cm; Wt 70.0 kg
--- NOTE | 2020-11-22 05:34 | NUR ---
NIL X 1
[2020-11-22 05:43] VITALS: BP 123/82
--- NOTE | 2020-11-22 06:50 | NUR ---
Report to JERROD Goode
--- NOTE | 2020-11-22 07:22 | NUR ---
PT STANDING IN [place] W/ PENIS OUT, RUBBING IT AND ASKING THIS RN FOR FOOD. PT ASKED TO PUT GENITALS AWAY.
--- NOTE | 2020-11-22 07:23 | NUR ---
Patient given discharge instructions and they have confirmed that they understand the instructions. Patient ambulatory with steady gait.
== END 2020-11-22 07:25 | disposition home or self-care (01) ==
LOC: ED 05:52
DX: L60.0 Ingrowing nail (principal); Z72.9 Problem related to lifestyle, unspecified; F17.200 Nicotine dependence, unspecified, uncomplicated
CPT/HCPCS: 99281

== ENCOUNTER 2020-11-27 03:44 | Emergency (ER) | payer MEDICAID ==
[~2020-11-27] VITALS: Ht 182.9 cm; Wt 69.9 kg
[2020-11-27 03:50] VITALS: BP 131/77
[2020-11-27] MEDS ORDERED: IBUPROFEN 200 MG TABLET PO ONE (04:00)
--- NOTE | 2020-11-27 04:00 | NUR ---
PT STATES HE WAS HIKING TODAY AND A BOULDER FELL ONTOP OF HIS RIGHT ANKLE AND THEN PT ROLLED HIS ANKLE, PT STATES HE HAS BEEN HIKING ALL DAY ON IT, PT A/OX4, PT ABLE TO AMBULATE TO THE ROOM WITH A SLIGHT LIMP BUT PT WAS STEADY ON HIS FEET AND DID NOT APPEAR TO BE IN ANY DISTRESS
[2020-11-27] MEDS ORDERED: IBUPROFEN 200 MG TABLET ONE (04:04)
--- NOTE | 2020-11-27 05:11 | NUR ---
PT ASLEEP IN BED, ALL NEEDS IN REACH, CALL LIGHT IN REACH, NAD AT THIS TIME
--- NOTE | 2020-11-27 05:21 | NUR ---
THIS RN APPLIED AIR AIR SPLINT TO PTS ANKLE, PT TOLERATED SPLINT APPLICATION WELL
--- NOTE | 2020-11-27 05:53 | NUR ---
PT GIVEN BUS PASS UPON DISCHARGE
== END 2020-11-27 05:54 | disposition home or self-care (01) ==
LOC: ED 04:00
DX: S93.401A Sprain of unspecified ligament of right ankle, initial encounter (principal); Z72.9 Problem related to lifestyle, unspecified; F17.210 Nicotine dependence, cigarettes, uncomplicated; J45.909 Unspecified asthma, uncomplicated; X50.1XXA Overexertion from prolonged static or awkward postures, initial encounter; Y93.89 Activity, other specified; Y92.89 Other specified places as the place of occurrence of the external cause; Y99.8 Other external cause status
CPT/HCPCS: 99406

== ENCOUNTER 2020-12-02 10:56 | Emergency (ER) | payer MEDICAID ==
[~2020-12-02] VITALS: Ht 182.9 cm; Wt 70.5 kg
[2020-12-02 11:06] VITALS: BP 124/76
--- NOTE | 2020-12-02 14:03 | NUR ---
pt not in lobby for discharge.
== END 2020-12-02 14:05 | disposition left against medical advice (07) ==
LOC: ED 13:59
DX: G89.11 Acute pain due to trauma (principal); M79.671 Pain in right foot; Z72.9 Problem related to lifestyle, unspecified; X50.1XXA Overexertion from prolonged static or awkward postures, initial encounter; Y93.89 Activity, other specified; Y92.89 Other specified places as the place of occurrence of the external cause; Y99.8 Other external cause status
CPT/HCPCS: 99283